=== PATIENT | female | born 1965 | race Caucasian/White ===

== ENCOUNTER 2018-02-25 00:18 | Emergency (ER) | payer OTHER ==
[~2018-02-25] VITALS: Ht 152.4 cm; Wt 48.0 kg
[2018-02-25] MEDS ORDERED: CYCLOBENZAPRINE 10MG TABLET PO ONE (03:00)
[2018-02-25] MEDS ORDERED: IBUPROFEN 600MG TABLET PO STA (03:00)
[2018-02-25 03:44] LABS: BASOPHILS % 0.4 % (0.0-2.0); EOSINOPHILS % 2.1 % (0.0-5.0); HEMATOCRIT. 39.4 % (36.0-48.0); HEMOGLOBIN. 13.4 g/dL (12.0-16.0); LYMPHOCYTES % 33.7 % (20.0-50.0); MEAN CORPUSCULAR HEMOGLOBIN 32.4 pg (28.0-32.0); MEAN CORPUSCULAR VOLUME 95.2 fL (81.0-99.0); MEAN PLATELET VOLUME 8.5 fl (7.4-10.4); MONOCYTES % 6.6 % (2.0-8.0); NEUTROPHILS % 57.2 % (40.0-76.0); PLATELET 263 x1000/uL (130-400); RED BLOOD CELL COUNT 4.14 mill/uL (4.2-5.4)
[2018-02-25 03:48] LABS: CHLORIDE 107 mEq/L (98-107)
[2018-02-25 04:51] LABS: CLARITY URINE CLEAR (CLEAR); COLOR URINE YELLOW (YELLOW); KETONES URINE NEGATIVE (NEGATIVE); LEUKOCYTE ESTERASE URINE NEGATIVE (NEGATIVE); NITRITE URINE NEGATIVE (NEGATIVE); OCCULT BLOOD URINE NEGATIVE (NEGATIVE); PROTEIN URINE NEGATIVE (NEGATIVE); SPECIFIC GRAVITY URINE 1.013 (1.005-1.030); UROBILINOGEN URINE 0.2 E.U./dL (0.2-1.0)
[2018-02-25 04:55] VITALS: BP 128/72
== END 2018-02-25 05:05 | disposition home or self-care (01) ==
LOC: ER 00:18
DX: R51 Headache (principal); Z88.0 Allergy status to penicillin
CPT/HCPCS: 36415; 80048; 99283